=== PATIENT | female | born 1995 ===

== ENCOUNTER 2024-10-21 13:34 | Inpatient (IN) | payer BC ==
[2024-10-21] MEDS ORDERED: Sodium Chloride 0.9% 10 ML Syringe FLUSH PRN (14:08)
[2024-10-21] MEDS ORDERED: Ondansetron 4 MG/2 ML SDV IVPUSH PRN (14:08)
[2024-10-21] MEDS ORDERED: Sodium Chloride 0.9% 2.5 ML Syringe FLUSH PRN (14:08)
[2024-10-21] MEDS ORDERED: Misoprostol 200 MCG Tab PO PRN (14:08)
[2024-10-21] MEDS ORDERED: Methylergonovine 0.2 MG/1 ML Amp IM PRN (14:08)
[2024-10-21] MEDS ORDERED: Sodium Chloride 0.9% 20 ML SDV IV PRN (14:08)
[2024-10-21] MEDS ORDERED: Tranexamic Acid in NACL,ISO-OS 1,000 MG in Premix Bag 1 BAG IV PRN (14:08)
[2024-10-21] MEDS ORDERED: Carboprost Tromethamine 250 MCG/1 mL Vial IM PRN (14:08)
[2024-10-21] MEDS ORDERED: Butorphanol 2 MG/ML SDV IVPUSH PRN (14:08)
[2024-10-21] MEDS ORDERED: Water For Irrigation,Sterile 1,000 ML Container IRR PRN (14:08)
[2024-10-21 15:15] LABS: HEMATOCRIT 35.5 % (37.0-47.0); MEAN CORPUSCULAR HEMOGLOBIN 30.8 pg (28.0-32.0); MEAN CORPUSCULAR HGB CONC 33.8 g/dL (32.0-36.0); MEAN PLATELET VOLUME 8.8 fL (9.4-12.3); PLATELET COUNT,PLT 291 K/uL (150-400); WHITE BLOOD CELL COUNT,WBC 17.74 K/uL (3.9-11.3)
[2024-10-21] MEDS: Lactated Ringers 1,000 ML IV SCH (16:13)
[2024-10-21] MEDS: Oxytocin/0.9 % Sodium Chloride 30 UNIT/500 ML BAG IV SCH (18:18)
[2024-10-21] MEDS: Lidocaine 1% 50 ML MDV INJECT PRN (18:42)
[2024-10-21] MEDS ORDERED: Witch Hazel Medicated Pads 40/Jar TOP PRN (20:11)
[2024-10-21] MEDS ORDERED: Docusate Sodium 100 MG Cap PO PRN (20:11)
[2024-10-21] MEDS ORDERED: Benzocaine/Menthol 20%-0.5% Spray 78 GM Cannister TOP PRN (20:11)
[2024-10-21 20:25] LABS: PH,UMBILICAL ARTERIAL 7.272 (7.18-7.38); PH,UMBILICAL VENOUS 7.411 (7.25-7.45)
[2024-10-21] MEDS: Ibuprofen 800 MG Tab PO PRN (21:20)
[2024-10-21] MEDS: Acetaminophen 500 MG Tab PO PRN (21:21)
[2024-10-21] MEDS: Witch Hazel Medicated Pads 40/Jar TOP ONE (21:21)
[2024-10-21] MEDS: Benzocaine/Menthol 20%-0.5% Spray 78 GM Cannister ONE (21:22)
[2024-10-22 06:07] LABS: BASOPHILS ABSOLUTE AUTO 0.03 K/uL (0.00-0.20); BASOPHILS PERCENT AUTO 0.2 % (0.0-1.0); EOSINOPHILS ABSOLUTE AUTO 0.03 K/uL (0.00-0.45); EOSINOPHILS PERCENT AUTO 0.2 % (0.0-6.0); HEMOGLOBIN 10.5 g/dL (12.0-16.0); IMMATURE GRAN ABSOLUTE AUTO 0.13 K/uL (0.00-0.05); IMMATURE GRAN PERCENT AUTO 0.7 % (0.0-0.4); LYMPHOCYTES ABSOLUTE AUTO 2.88 K/uL (1.00-4.80); LYMPHOCYTES PERCENT AUTO 15.3 % (24.0-44.0); MEAN CORPUSCULAR HEMOGLOBIN 31.3 pg (28.0-32.0); MEAN CORPUSCULAR HGB CONC 33.9 g/dL (32.0-36.0); MEAN CORPUSCULAR VOLUME 92.3 fL (83.0-99.0); MEAN PLATELET VOLUME 9.2 fL (9.4-12.3); MONOCYTES ABSOLUTE AUTO 1.49 K/uL (0.00-0.80); MONOCYTES PERCENT AUTO 7.9 % (0.0-8.0); NEUTROPHILS ABSOLUTE AUTO 14.27 K/uL (1.80-7.70); NEUTROPHILS PERCENT AUTO 75.7 % (41.0-71.0); PLATELET COUNT,PLT 269 K/uL (150-400); RED BLOOD CELL COUNT 3.36 M/uL (4.10-5.30); WHITE BLOOD CELL COUNT,WBC 18.83 K/uL (3.9-11.3)
[2024-10-22] MEDS: Lanolin 100% Cream 7 GM Tube TOP PRN (06:10)
== END 2024-10-23 12:33 | disposition home or self-care (01) | DRG 560 ==
LOC: MW.OBCHECK 13:34 → MW.OB 15:51 → OBSVTOIN 20:11 → MW.OB 20:11
PROVIDERS: ADMIT Obstetrics & Gynecology; ATTEND Obstetrics & Gynecology
PROC: 10E0XZZ Delivery of Products of Conception, External Approach (ICD-10-PCS; principal; 2024-10-21)
PROC: 0KQM0ZZ Repair Perineum Muscle, Open Approach (ICD-10-PCS; 2024-10-21)
DX: O42.02 Full-term premature rupture of membranes, onset of labor within 24 hours of rupture (principal); Z37.0 Single live birth; O70.1 Second degree perineal laceration during delivery; O69.81X0 Labor and delivery complicated by cord around neck, without compression, not applicable or unspecified; Z3A.39 39 weeks gestation of pregnancy
CPT/HCPCS: 36415; 59025; 59409; 82803; 85025; 85027; 86592; 86850; 86900; 86901; A9270-GY; J2003; J2590; J7120